=== PATIENT | male | born 1965 | race Caucasian/White ===

== ENCOUNTER 2016-06-09 10:58 | Emergency (ER) | payer OTHER ==
--- NOTE | 2016-06-09 13:39 | ED ORDER SUMMARY ---
..... Patient: ALEJANDRINA DANIELS OrderSheet [facility] VisitID: [id number] [place] [address] 51y, M Registration Date/Time: 06/09/2016 ORDER SHEET Weight: 113.3 kg (stated) Allergies: No Known Drug Allergy GENERAL ORDERS: CBC w Diff Urgent (11:42 06/09/2016 Louisa Holliday) (Ack 11:50 NHouse ER Tech1) (12:19 Gary R.N.) CMP Urgent (11:42 06/09/2016 Louisa Holliday) (Ack 11:50 NHouse ER Tech1) (12:19 Gary R.N.) UA-Culture if indicated Urgent (:42 06/09/2016 Louisa Holliday) (Ack 11:50 NHouse ER Tech1) (13:15 NHouse ER Tech1) PT with INR Urgent (11:42 06/09/2016 Louisa Holliday) (Ack 11:50 NHouse ER Tech1) (12:19 Gary R.N.) PTT Urgent (11:42 06/09/2016 Louisa Holliday) (Ack 11:50 NHouse ER Tech1) (12:19 Gary R.N.) Type & Rh Urgent (11:42 06/09/2016 Louisa Holliday) (Ack 11:50 NHouse ER Tech1) (12:19 Gary R.N.) MEDICATION ORDERS: IV FLUIDS: ORDER SHEET NOTES: [Electronically signed by Tamela Schafer R.N. (13:58 06/09/2016)] [Electronically signed by Aditya Welilngton Dr. (13:26 06/15/2016)] [Electronically locked/signed by Tamela Schafer R.N. (13:58 06/09/2016)]
--- NOTE | 2016-06-09 13:39 | ED CLINICAL REPORT ---
Clinical Report - Physicians/Mid Levels [facility] [address] [place] [address] 06/09/2016 10:59 Patient: ALEJANDRINA DANIELS Arrived- By private vehicle. Historian- patient. HISTORY OF PRESENT ILLNESS Chief Complaint: Rectal bleeding. This started today and is still present (staying the same). It was abrupt in onset and has been intermittent but is not gone now. The illness is described as moderate. No chest discomfort or pain or fever. (reports only having bleeding after having a bowel movement. Reports no history of hemorrhoids. States that he has a normal colonoscopy less than 5 years ago. Reports the colonoscopy did not show any acute abnormalities. Reports no history of constipation. States that he is having left upper quadrant abdominal pain that has been intermittent and mild. Reports he does not know what makes it better or worse. Reports not wanting any pain medication at this time. Reports the hematuria, diarrhea, nausea, vomiting, new or unusual foods, sick contact exposure,recent travel, recent antibiotics.). Additional history - No known contact with a sick individual. Similar symptoms previously: None. Recent medical care: Not recently seen/assessed. REVIEW OF SYSTEMS All systems otherwise negative, except as recorded above. PAST HISTORY Medications: AmLODIPine Besylate Oral. Lisinopril Oral. Allergies: No Known Drug Allergy. SOCIAL HISTORY Never smoker. Occasional alcohol use. No drug use. Is a local resident. FAMILY HISTORY (No family history of bleeding problems). ADDITIONAL NOTES The nursing notes have been reviewed. PHYSICAL EXAM Vital Signs: 06/09/2016 11:11 BP: 161/90. HR: 118. RR: 17. O2 saturation: 96%. Temp: 98.1 F. Blood pressure normal. Oxygen saturation normal. Appearance: Alert. No acute distress. Eyes: Pupils equal, round and reactive to light. Eyes normal inspection. ENT: Ears normal. Nose normal. Pharynx normal. Uvula midline. Neck: Normal inspection. Neck supple. CVS: Normal heart rate and rhythm. Heart sounds normal. Pulses normal. Respiratory: No respiratory distress. Breath sounds normal. Abdomen: Soft and nontender. No organomegaly. Back: Normal inspection. Rectal: Weakly heme-positive stool; hemoccult quality control technician check passed. brown colored stool (POC test reference range: negative). No blood streaks, gross blood, dark stools, servando melena or maroon colored stools. Rectal exam normal. Skin: Skin warm and dry. Normal skin color. No rash. Normal skin turgor. Extremities: Extremities exhibit normal ROM. No lower extremity edema. LABS, X-RAYS, AND EKG Laboratory Tests: UA-Culture if indicated: (LYNETTE: 06/09/2016 12:26) ( [facility] [place] 06/09[facility] 12:46) Final results Test Result Flag Units (Reference) URINE COLOR YELLOW URINE APPEARANCE CLEAR URINE GLUCOSE NEGATIVE (NEGATIVE) URINE BILIRUBIN NEGATIVE (NEGATIVE) URINE KETONE NEGATIVE (NEGATIVE) URINE SPECIFIC GRAVITY 1.025 (1.010-1.030) URINE PH 5.5 (5.0-8.0) URINE PROTEIN NEGATIVE (NEGATIVE) URINE UROBILINOGEN 0.2 EU/dL (0.2-1.0) URINE NITRITE NEGATIVE (NEGATIVE) URINE BLOOD NEGATIVE (NEGATIVE) URINE LEUK ESTERASE NEGATIVE (NEGATIVE) URINE RBC NONE SEEN rbc/hpf (0-1) URINE WBC NONE SEEN wbc/hpf (0-1) URINE EPITHELIAL CELLS NONE SEEN EPI/hpf (0-5) URINE BACTERIA NONE SEEN (NONE SEEN) URINE COMMENT CULT NOT INDICATED URINE CULTURES ARE SET-UP BASED ON THE FOLLOWING CRITERIA:POSITIVE NITRITEPOSITIVE LEUKOCYTE ESTERASEGREATER THAN 10 WHITE BLOOD CELLSMODERATE (2+) OR GREATER BACTERIA CBC w Diff: (LYNETTE: 06/09/2016 12:10) ( [facility] 06/09/2016 12:22) Final results Test Result Flag Units (Reference) WHITE BLOOD COUNT 9.0 K/uL (4.5-11.5) RED BLOOD COUNT 5.28 M/uL (4.50-5.90) HEMOGLOBIN 16.1 gm/dL (13.5-17.5) HEMATOCRIT 48.3 % (41.0-53.0) MEAN CELL VOLUME 91 fL (80-100) MEAN CORPUSCULAR HGB 31 pg (26-34) MEAN CORPUSCULAR HGB CONC 33 g/dL (31-37) RED CELL DISTRIBUTION WIDTH 12.3 % (11.6-14.8) PLATELET COUNT 242 K/uL (150-400) NEUTROPHIL % 72.7 % (50-75) LYMPH % 18.0 L % (25-40) MONO % 5.9 % (3-14) EOSINOPHIL % 3.1 % (0-4) BASOPHIL % 0.3 % (0-2) PT with INR: (LYNETTE: 06/09/2016 11:42) ( MsgRcvd 06/09/2016 12:48) Final results Test Result Flag Units (Reference) INR 0.9 (0.8-1.2) Low Intensity Therapy: INR 1.5-2.0 PT range 18.5-23.1Mod.Intensity Therapy: INR 2.0-3.0 PT range 23.1-31.5High Intensity Therapy: INR 2.5-3.5 PT range 27.4-35.5High Intensity Therapy 2: INR 3.0-4.0 PT range 31.5-39.3 APTT 25 SECONDS (24-34) CMP: (LYNETTE: 06/09/2016 12:10) ( [facility]ag[facility] 06/09/2016 12:37) Final results Test Result Flag Units (Reference) GLUCOSE 121 H mg/dL (70-110) BUN 17 mg/dL (7-18) CREATININE 1.3 mg/dL (0.6-1.3) Estimated GFR >60 mL/min Estimated GFR- >60 mL/min Note: Persistent reduction over 3 months in eGFR<60 mL/min/1.73 m2 defines CKD. Patients with eGFR values>=60 mL/min/1.73 m2 may also have CKD if evidence ofpersistent proteinuria. Additional information may be foundat www.kidney.org. SODIUM 140 mmol/L (136-145) POTASSIUM 4.1 mmol/L (3.5-5.1) CHLORIDE 105 mmol/L (98-107) CARBON DIOXIDE 23 mmol/L (21-32) CALCIUM 9.0 mg/dL (8.5-10.1) TOTAL PROTEIN 7.8 g/dL (6.4-8.2) ALBUMIN 3.8 g/dL (3.3-5.0) BILIRUBIN, TOTAL 0.3 mg/dL (0.0-1.0) ALKALINE PHOSPHATASE 79 U/L (46-116) AST (SGOT) 20 U/L (15-37) ALT (SGPT) 49 U/L (12-78) Type & Rh: (LYNETTE: 06/09/2016 12:10) ( MsgRcvd 06/09/2016 13:03) Final results Test Result Flag Units (Reference) PATIENT BLOOD TYPE B Positive . PROGRESS AND PROCEDURES Course of Care: the patient is a pleasant 51-year-old male presenting for evaluation of bright red blood per rectum. On examination, patient has heme positive stool. Patient to be evaluated with laboratory studies as well as quite duration factors. I discussed with patient in regards to abdominal pain. Patient has no other symptoms of abdominal pain. Patient has a nontender abdomen. Patient declines imaging or pain medication at this time. Workup does not show any acute antibodies. No urinary tract infection, hemoglobin and hematocrit are within normal limits, coagulation studies are also normal. Patient is resting in bed in no acute distress and does not have any signs of anemia. Patient is not symptomatically. Discussed the patient workup, diagnosis, home care, follow-up, and return precautions. All questions answered. The patient expressed understanding of these instructions and was agreeable to them. The patient states she will be able to follow up with the doctor that provided his most recent colonoscopy. Discharge instructions in regards to bleeding was provided. Because the patient is a stable GI bleed, patient is a good outpatient candidate. Do not feel the patient needs to be admitted to the hospital or require further emergency department evaluation. Discussed with patient workup, diagnosis, home care, follow up, and return precautions. All questions answered. Mother expressed understanding of these instructions and was agreeable to them. Disposition: Discharged. Condition: good. CLINICAL IMPRESSION 06/09/2016 11:11 BP: 161/90. HR: 118. RR: 17. O2 saturation: 96%. Temp: 98.1 F. Acute left upper quadrant abdominal pain. Blood pressure normal. Oxygen saturation normal. Rectal bleed consisting of bright red blood (acute). INSTRUCTIONS Warnings: GENERAL WARNINGS: Return or contact your physician immediately if your condition worsens or changes unexpectedly, if not improving as expected, or if other problems arise. Specifically return if pain, vomiting, bleeding, breathing difficulty or fever. Your Current Medications: CONTINUE TAKING THE FOLLOWING MEDICATIONS: AmLODIPine Besylate Oral. Lisinopril Oral. Prescription Medications: Pepcid 20 mg: take 1 orally every 12 hours for 10 days as needed for indigestion or upset stomach. Dispense twenty (20). No refills. Substitution is permissible. Follow-up: Return to the emergency department as needed. Follow up with your doctor in three days. Reason for referral: recheck today's concerns. Summary of care provided to patient via paper. Screening today revealed the patient's blood pressure to be in the normal range. The patient should follow up with a primary care provider for blood pressure management. Understanding of the discharge instructions verbalized by patient. (Electronically signed by Aditya Wellington Dr. 06/15/2016 13:26)
--- NOTE | 2016-06-09 13:39 | ED CLINICAL REPORT ---
Clinical Report - Physicians/Mid Levels [facility] [address] [place] [address] 06/09/2016 10:59 Patient: ALEJANDRINA DANIELS Arrived- By private vehicle. Historian- patient. HISTORY OF PRESENT ILLNESS Chief Complaint: Rectal bleeding. This started today and is still present (staying the same). It was abrupt in onset and has been intermittent but is not gone now. The illness is described as moderate. No chest discomfort or pain or fever. (reports only having bleeding after having a bowel movement. Reports no history of hemorrhoids. States that he has a normal colonoscopy less than 5 years ago. Reports the colonoscopy did not show any acute abnormalities. Reports no history of constipation. States that he is having left upper quadrant abdominal pain that has been intermittent and mild. Reports he does not know what makes it better or worse. Reports not wanting any pain medication at this time. Reports the hematuria, diarrhea, nausea, vomiting, new or unusual foods, sick contact exposure,recent travel, recent antibiotics.). Additional history - No known contact with a sick individual. Similar symptoms previously: None. Recent medical care: Not recently seen/assessed. REVIEW OF SYSTEMS All systems otherwise negative, except as recorded above. PAST HISTORY Medications: AmLODIPine Besylate Oral. Lisinopril Oral. Allergies: No Known Drug Allergy. SOCIAL HISTORY Never smoker. Occasional alcohol use. No drug use. Is a local resident. FAMILY HISTORY (No family history of bleeding problems). ADDITIONAL NOTES The nursing notes have been reviewed. PHYSICAL EXAM Vital Signs: 06/09/2016 11:11 BP: 161/90. HR: 118. RR: 17. O2 saturation: 96%. Temp: 98.1 F. Blood pressure normal. Oxygen saturation normal. Appearance: Alert. No acute distress. Eyes: Pupils equal, round and reactive to light. Eyes normal inspection. ENT: Ears normal. Nose normal. Pharynx normal. Uvula midline. Neck: Normal inspection. Neck supple. CVS: Normal heart rate and rhythm. Heart sounds normal. Pulses normal. Respiratory: No respiratory distress. Breath sounds normal. Abdomen: Soft and nontender. No organomegaly. Back: Normal inspection. Rectal: Weakly heme-positive stool; hemoccult quality control chemist check passed. brown colored stool (POC test reference range: negative). No blood streaks, gross blood, dark stools, servanod melena or maroon colored stools. Rectal exam normal. Skin: Skin warm and dry. Normal skin color. No rash. Normal skin turgor. Extremities: Extremities exhibit normal ROM. No lower extremity edema. LABS, X-RAYS, AND EKG Laboratory Tests: UA-Culture if indicated: (LYNETTE: 06/09/2016 12:26) ( [facility] [place] [facility] 12[facility] Final results Test Result Flag Units (Reference) URINE COLOR YELLOW URINE APPEARANCE CLEAR URINE GLUCOSE NEGATIVE (NEGATIVE) URINE BILIRUBIN NEGATIVE (NEGATIVE) URINE KETONE NEGATIVE (NEGATIVE) URINE SPECIFIC GRAVITY 1.025 (1.010-1.030) URINE PH 5.5 (5.0-8.0) URINE PROTEIN NEGATIVE (NEGATIVE) URINE UROBILINOGEN 0.2 EU/dL (0.2-1.0) URINE NITRITE NEGATIVE (NEGATIVE) URINE BLOOD NEGATIVE (NEGATIVE) URINE LEUK ESTERASE NEGATIVE (NEGATIVE) URINE RBC NONE SEEN rbc/hpf (0-1) URINE WBC NONE SEEN wbc/hpf (0-1) URINE EPITHELIAL CELLS NONE SEEN EPI/hpf (0-5) URINE BACTERIA NONE SEEN (NONE SEEN) URINE COMMENT CULT NOT INDICATED URINE CULTURES ARE SET-UP BASED ON THE FOLLOWING CRITERIA:POSITIVE NITRITEPOSITIVE LEUKOCYTE ESTERASEGREATER THAN 10 WHITE BLOOD CELLSMODERATE (2+) OR GREATER BACTERIA CBC w Diff: (LYNETTE: 06/09/2016 12:10) ( [facility] 12:[facility]) Final results Test Result Flag Units (Reference) WHITE BLOOD COUNT 9.0 K/uL (4.5-11.5) RED BLOOD COUNT 5.28 M/uL (4.50-5.90) HEMOGLOBIN 16.1 gm/dL (13.5-17.5) HEMATOCRIT 48.3 % (41.0-53.0) MEAN CELL VOLUME 91 fL (80-100) MEAN CORPUSCULAR HGB 31 pg (26-34) MEAN CORPUSCULAR HGB CONC 33 g/dL (31-37) RED CELL DISTRIBUTION WIDTH 12.3 % (11.6-14.8) PLATELET COUNT 242 K/uL (150-400) NEUTROPHIL % 72.7 % (50-75) LYMPH % 18.0 L % (25-40) MONO % 5.9 % (3-14) EOSINOPHIL % 3.1 % (0-4) BASOPHIL % 0.3 % (0-2) PT with INR: (LYNETTE: 06/09/2016 11:42) ( MsgRcvd 06/09/2016 12:48) Final results Test Result Flag Units (Reference) INR 0.9 (0.8-1.2) Low Intensity Therapy: INR 1.5-2.0 PT range 18.5-23.1Mod.Intensity Therapy: INR 2.0-3.0 PT range 23.1-31.5High Intensity Therapy: INR 2.5-3.5 PT range 27.4-35.5High Intensity Therapy 2: INR 3.0-4.0 PT range 31.5-39.3 APTT 25 SECONDS (24-34) CMP: (LYNETTE: 06/09/2016 12:10) ( HigRcvd 06/09/2016 12:37) Final results Test Result Flag Units (Reference) GLUCOSE 121 H mg/dL (70-110) BUN 17 mg/dL (7-18) CREATININE 1.3 mg/dL (0.6-1.3) Estimated GFR >60 mL/min Estimated GFR- >60 mL/min Note: Persistent reduction over 3 months in eGFR<60 mL/min/1.73 m2 defines CKD. Patients with eGFR values>=60 mL/min/1.73 m2 may also have CKD if evidence ofpersistent proteinuria. Additional information may be foundat www.kidney.org. SODIUM 140 mmol/L (136-145) POTASSIUM 4.1 mmol/L (3.5-5.1) CHLORIDE 105 mmol/L (98-107) CARBON DIOXIDE 23 mmol/L (21-32) CALCIUM 9.0 mg/dL (8.5-10.1) TOTAL PROTEIN 7.8 g/dL (6.4-8.2) ALBUMIN 3.8 g/dL (3.3-5.0) BILIRUBIN, TOTAL 0.3 mg/dL (0.0-1.0) ALKALINE PHOSPHATASE 79 U/L (46-116) AST (SGOT) 20 U/L (15-37) ALT (SGPT) 49 U/L (12-78) Type & Rh: (LYNETTE: 06/09/2016 12:10) ( MsgRcvd 06/09/2016 13:03) Final results Test Result Flag Units (Reference) PATIENT BLOOD TYPE B Positive . PROGRESS AND PROCEDURES Course of Care: the patient is a pleasant 51-year-old male presenting for evaluation of bright red blood per rectum. On examination, patient has heme positive stool. Patient to be evaluated with laboratory studies as well as quite duration factors. I discussed with patient in regards to abdominal pain. Patient has no other symptoms of abdominal pain. Patient has a nontender abdomen. Patient declines imaging or pain medication at this time. Workup does not show any acute antibodies. No urinary tract infection, hemoglobin and hematocrit are within normal limits, coagulation studies are also normal. Patient is resting in bed in no acute distress and does not have any signs of anemia. Patient is not symptomatically. Discussed the patient workup, diagnosis, home care, follow-up, and return precautions. All questions answered. The patient expressed understanding of these instructions and was agreeable to them. The patient states she will be able to follow up with the doctor that provided his most recent colonoscopy. Discharge instructions in regards to bleeding was provided. Because the patient is a stable GI bleed, patient is a good outpatient candidate. Do not feel the patient needs to be admitted to the hospital or require further emergency department evaluation. Discussed with patient workup, diagnosis, home care, follow up, and return precautions. All questions answered. Mother expressed understanding of these instructions and was agreeable to them. Disposition: Discharged. Condition: good. CLINICAL IMPRESSION 06/09/2016 11:11 BP: 161/90. HR: 118. RR: 17. O2 saturation: 96%. Temp: 98.1 F. Acute left upper quadrant abdominal pain. Blood pressure normal. Oxygen saturation normal. Rectal bleed consisting of bright red blood (acute). INSTRUCTIONS Warnings: GENERAL WARNINGS: Return or contact your physician immediately if your condition worsens or changes unexpectedly, if not improving as expected, or if other problems arise. Specifically return if pain, vomiting, bleeding, breathing difficulty or fever. Your Current Medications: CONTINUE TAKING THE FOLLOWING MEDICATIONS: AmLODIPine Besylate Oral. Lisinopril Oral. Prescription Medications: Pepcid 20 mg: take 1 orally every 12 hours for 10 days as needed for indigestion or upset stomach. Dispense twenty (20). No refills. Substitution is permissible. Follow-up: Return to the emergency department as needed. Follow up with your doctor in three days. Reason for referral: recheck today's concerns. Summary of care provided to patient via paper. Screening today revealed the patient's blood pressure to be in the normal range. The patient should follow up with a primary care provider for blood pressure management. Understanding of the discharge instructions verbalized by patient. (Electronically signed by Aditya Wellington Dr. 06/15/2016 13:26)
--- NOTE | 2016-06-09 13:39 | ED ORDER SUMMARY ---
..... Patient: ALEJANDRINA DANIELS OrderSheet [facility] VisitID: [id number] [place] [address] 51y, M Registration Date/Time: 06/09/2016 ORDER SHEET Weight: 113.3 kg (stated) Allergies: No Known Drug Allergy GENERAL ORDERS: CBC w Diff Urgent (11:42 06/09/2016 Louisa Holliday) (Ack 11:50 NHouse ER Tech1) (12:19 Gary R.N.) CMP Urgent (11:42 06/09/2016 Louisa Holliday) (Ack 11:50 NHouse ER Tech1) (12:19 Gary R.N.) UA-Culture if indicated Urgent (:42 06/09/2016 Louisa Holilday) (Ack 11:50 NHouse ER Tech1) (13:15 NHouse ER Tech1) PT with INR Urgent (11:42 06/09/2016 Louisa Holliday) (Ack 11:50 NHouse ER Tech1) (12:19 Gary R.N.) PTT Urgent (11:42 06/09/2016 Louisa Holliday) (Ack 11:50 NHouse ER Tech1) (12:19 Gary R.N.) Type & Rh Urgent (11:42 06/09/2016 Louisa Holliday) (Ack 11:50 NHouse ER Tech1) (12:19 Gary R.N.) MEDICATION ORDERS: IV FLUIDS: ORDER SHEET NOTES: [Electronically signed by Tamela Schafer R.N. (13:58 06/09/2016)] [Electronically signed by Aditya Wellington Dr. (13:26 06/15/2016)] [Electronically locked/signed by Tamela Schafer R.N. (13:58 06/09/2016)]
--- NOTE | 2016-06-09 13:39 | ED NURSING NOTES ---
Clinical Report - Nurses [facility] [address] [place] [address] 06/09/2016 10:59 Patient: ALEJANDRINA DANIELS TRIAGE Triage time 11:09. Acuity: LEVEL 3. Chief Complaint: (left flank pain; rectal bleeding). 11:14 06/09/16. --11:14 Shun Rodriguez R.N. 11:11 06/09/16. BP: 161/90. HR: 118. RR: 17. O2 saturation: 96% on room air. Temp: 98.1 F (oral). Pain level now 08/16. --11:14 Shun Rodriguez R.N. Weight: 113.3 kg stated. Height/Length: 68 inches Per Patient. BMI: 38. --11:10 Shnu Rodriguez R.N. Medications Lisinopril Oral. --11:13 Shun Rodriguez R.N. AmLODIPine Besylate Oral. --11:13 Shun Rodriguez R.N. Allergies No Known Drug Allergy. --11:13 Shun Rodriguez R.N. Medication/allergy information source: the patient. --11:14 Shun Rodriguez R.N. History Arrived by private vehicle, and accompanied by family. Primary physician (que). ( c/o left flank pain x2 days and bright red blood on toilet paper this morning. Pt denies any urinary symptoms.). This started today. Treatment INNOVATION MANAGER: None. SOCIAL HX: Former smoker, end date 2001. Alcohol use; consumes two beers a day. No drug use. FALL RISK ASSESSMENT: Fall risk assessment completed. No fall risk identified. NUTRITIONAL RISK ASSESSMENT: The nutritional risk assessment revealed no deficiencies. FUNCTIONAL ASSESSMENT: Functional assessment: no impairments noted. LEARNING NEEDS ASSESSMENT: The learning needs assessment revealed no barriers. SKIN INTEGRITY ASSESSMENT: Skin integrity risk assessment completed. No skin integrity risk identified. --11:14 Shun Rodriguez R.N. PROBLEMS: Gastroesophageal Reflux Disease. Hypertension. Abdominal Pain. --11:13 Shun Rodriguez R.N. Diverticulitis [RuleOut]. --11:13 Shun Rodriguez R.N. ADDITIONAL SURGERIES: Knee Surgery. Knee, right . --11:13 Shun Rodriguez R.N. Interventions ID band on patient. To treatment room. --11:14 Shun Rodriguez R.N. PHYSICAL ASSESSMENT 11:15 06/09/16. Ambulatory to room. GENERAL / NEURO / PSYCH: Alert. Oriented X 4. Appears in no acute distress. HEENT: Mucous membranes are pink. RESPIRATORY: Respirations not labored. CVS: Capillary refill less than 2 seconds. GI / : Abdomen soft and nontender. SKIN: Skin is warm and dry. --11:15 Shun Rodriguez R.N. NURSING PROGRESS NOTES 11:15 06/09/16. The plan of care for this patient has been created. Patient gowned. Head of bed elevated. Call light placed in reach. Bed placed in lowest position. Brakes of bed on. Patient ready for evaluation- chart flagged. --11:15 Shun Rodriguez R.N. Patient ID band checked for patient name and birthdate: patient confirmed. Instructions provided to collect clean catch urine and patient verbalized understanding. Clean catch urine collected with return of bean-colored clear urine; odor is normal; sample sent to lab for urinalysis and culture. Specimen labeled in the presence of the patient. --12:34 Shun Rodriguez R.N. 13:45. ( First contact with pt. Pt sitting fully dressed on chair in room #3, family at bedside. Pt in no distress, given dc instructions. ambulated out). --13:58 Tamela Schafer R.N. DISPOSITION / DISCHARGE 13:50. Condition at departure: stable. No learning barriers present. Discharge instructions provided and reviewed with the patient and spouse. Reviewed medication(s) (continue home zantac). Patient and spouse verbalized understanding. Written instructions provided in Moroccan. The patient was discharged home and accompanied by spouse. He left the Emergency Department ambulatory and via private vehicle. Patient driving. --13:57 Tamela Schafer R.N. 13:50 06/09/16. BP: 134/69. HR: 95. RR: 18. O2 saturation: 97% on room air. Temp: deferred. Pain level now: 08/16. --13:57 Tamela Schafer R.N. Locked/Released at 06/09/2016 13:58 by Tamela Schafer R.N.
--- NOTE | 2016-06-09 13:39 | ED NURSING NOTES ---
Clinical Report - Nurses [facility] [address] [place] [address] 06/09/2016 10:59 Patient: ALEJANDRINA DANIELS TRIAGE Triage time 11:09. Acuity: LEVEL 3. Chief Complaint: (left flank pain; rectal bleeding). 11:14 06/09/16. --11:14 Shun Rodriguez R.N. 11:11 06/09/16. BP: 161/90. HR: 118. RR: 17. O2 saturation: 96% on room air. Temp: 98.1 F (oral). Pain level now 08/16. --11:14 Shun Rodriguez R.N. Weight: 113.3 kg stated. Height/Length: 68 inches Per Patient. BMI: 38. --11:10 Shun Rodriguez R.N. Medications Lisinopril Oral. --11:13 Shun Rodriguez R.N. AmLODIPine Besylate Oral. --11:13 Shun Rodriguez R.N. Allergies No Known Drug Allergy. --11:13 Shun Rodriguez R.N. Medication/allergy information source: the patient. --11:14 Shun Rodriguez R.N. History Arrived by private vehicle, and accompanied by family. Primary physician (que). ( c/o left flank pain x2 days and bright red blood on toilet paper this morning. Pt denies any urinary symptoms.). This started today. Treatment [place]: None. SOCIAL HX: Former smoker, end date 2001. Alcohol use; consumes two beers a day. No drug use. FALL RISK ASSESSMENT: Fall risk assessment completed. No fall risk identified. NUTRITIONAL RISK ASSESSMENT: The nutritional risk assessment revealed no deficiencies. FUNCTIONAL ASSESSMENT: Functional assessment: no impairments noted. LEARNING NEEDS ASSESSMENT: The learning needs assessment revealed no barriers. SKIN INTEGRITY ASSESSMENT: Skin integrity risk assessment completed. No skin integrity risk identified. --11:14 Shun Rodriguez R.N. PROBLEMS: Gastroesophageal Reflux Disease. Hypertension. Abdominal Pain. --11:13 Shun Rodriguez R.N. Diverticulitis [RuleOut]. --11:13 Shun Rodriguez R.N. ADDITIONAL SURGERIES: Knee Surgery. Knee, right . --11:13 Shun Rodriguez R.N. Interventions ID band on patient. To treatment room. --11:14 Shun Rodriguez R.N. PHYSICAL ASSESSMENT 11:15 06/09/16. Ambulatory to room. GENERAL / NEURO / PSYCH: Alert. Oriented X 4. Appears in no acute distress. HEENT: Mucous membranes are pink. RESPIRATORY: Respirations not labored. CVS: Capillary refill less than 2 seconds. GI / : Abdomen soft and nontender. SKIN: Skin is warm and dry. --11:15 Shun Rodriguez R.N. NURSING PROGRESS NOTES 11:15 06/09/16. The plan of care for this patient has been created. Patient gowned. Head of bed elevated. Call light placed in reach. Bed placed in lowest position. Brakes of bed on. Patient ready for evaluation- chart flagged. --11:15 Shun Rodrgiuez R.N. Patient ID band checked for patient name and birthdate: patient confirmed. Instructions provided to collect clean catch urine and patient verbalized understanding. Clean catch urine collected with return of bean-colored clear urine; odor is normal; sample sent to lab for urinalysis and culture. Specimen labeled in the presence of the patient. --12:34 Shun Rodriguez R.N. 13:45. ( First contact with pt. Pt sitting fully dressed on chair in room #3, family at bedside. Pt in no distress, given dc instructions. ambulated out). --13:58 Tamela Schafer R.N. DISPOSITION / DISCHARGE 13:50. Condition at departure: stable. No learning barriers present. Discharge instructions provided and reviewed with the patient and spouse. Reviewed medication(s) (continue home zantac). Patient and spouse verbalized understanding. Written instructions provided in [place]. The patient was discharged home and accompanied by spouse. He left the Emergency Department ambulatory and via private vehicle. Patient driving. --13:57 Tamela Schafer R.N. 13:50 06/09/16. BP: 134/69. HR: 95. RR: 18. O2 saturation: 97% on room air. Temp: deferred. Pain level now: 08/16. --13:57 Tamela Schafer R.N. Locked/Released at 06/09/2016 13:58 by Tamela Schafer R.N.
--- NOTE | 2016-06-15 13:26 | ED MED RECONCILIATION SUMMARY ---
Patient: ALEJANDRINA DANIELS Medication Reconciliation Report [facility] VisitID: [id number] [address] [place] [address] 51y, M Registration Date/Time: 06/09/2016 Weight: 113.3 kg Height/Length: 68 in. BMI: 38.0 ALLERGIES: No Known Drug Allergy The patient's Home Medications are listed below: CONTINUE TAKING THE FOLLOWING MEDICATIONS: AmLODIPine Besylate Oral Lisinopril Oral The source(s) of the original Home Medication information: patient The following Medications were given to the patient in the Emergency Department: None. The following Medications were prescribed to the patient: Pepcid 20 mg: take 1 orally every 12 hours for 10 days as needed for indigestion or upset stomach. Dispense twenty (20). No refills. Substitution is permissible. -- Aditya Wellington Dr.
--- NOTE | 2016-06-15 13:26 | ED MED RECONCILIATION SUMMARY ---
Patient: ALEJANDRINA DANIELS Medication Reconciliation Report [facility] VisitID: [id number] [address] [place] [address] 51y, M Registration Date/Time: 06/09/2016 Weight: 113.3 kg Height/Length: 68 in. BMI: 38.0 ALLERGIES: No Known Drug Allergy The patient's Home Medications are listed below: CONTINUE TAKING THE FOLLOWING MEDICATIONS: AmLODIPine Besylate Oral Lisinopril Oral The source(s) of the original Home Medication information: patient The following Medications were given to the patient in the Emergency Department: None. The following Medications were prescribed to the patient: Pepcid 20 mg: take 1 orally every 12 hours for 10 days as needed for indigestion or upset stomach. Dispense twenty (20). No refills. Substitution is permissible. -- Aditya Wellington Dr.
--- NOTE | 2016-06-15 13:26 | ED DISCHARGE INSTRUCTIONS ---
Patient: ALEJANDRINA DANIELS General Instructions [facility] VisitID: [id number] [place] [address] 51y, M Registration Date/Time: 06/09/2016 06/09/2016 11:11 BP: 161/90. HR: 118. RR: 17. O2 saturation: 96%. Temp: 98.1 F. Acute left upper quadrant abdominal pain. Blood pressure normal. Oxygen saturation normal. Rectal bleed consisting of bright red blood (acute). INSTRUCTIONS Warnings: GENERAL WARNINGS: Return or contact your physician immediately if your condition worsens or changes unexpectedly, if not improving as expected, or if other problems arise. Specifically return if pain, vomiting, bleeding, breathing difficulty or fever. Your Current Medications: CONTINUE TAKING THE FOLLOWING MEDICATIONS: AmLODIPine Besylate Oral. Lisinopril Oral. Prescription Medications: Pepcid 20 mg: take 1 orally every 12 hours for 10 days as needed for indigestion or upset stomach. Dispense twenty (20). No refills. Substitution is permissible. Follow-up: Return to the emergency department as needed. Follow up with your doctor in three days. Reason for referral: recheck today's concerns. Summary of care provided to patient via paper. Screening today revealed the patient's blood pressure to be in the normal range. The patient should follow up with a primary care provider for blood pressure management. Understanding of the discharge instructions verbalized by patient. ADDITIONAL INFORMATION Abdominal Pain,Uncertain Cause [Male] Based on your visit today, the exact cause of your abdominalpain is not clear. Your exam and tests do not indicate a dangerous cause at this time. However, the signs of a serious problem may take more time to appear. Although your evaluation was reassuring today, sometimes early in the course of many conditions, exam and lab tests can appear normal. Therefore, it is important for you to watch for any new symptoms or worsening of your condition. Causes It may not be obvious what caused your symptoms. Pay attention to things that do seem to make your symptoms worse or better and discuss this with your doctor when you follow up. Diagnosis The evaluation of abdominal pain in the emergency department may onlyrequire an exam by the doctor or it may include blood, urine or imaging studies, depending on many factors. Sometimes exams and tests can identify a cause but in many cases, a clear cause is not found. Further testing at follow up visits may help to suggest a clear diagnosis. Home Care Rest as much as possible until your next exam. Try to avoid any medications (unless otherwise directed by your doctor), foods, activities, or other factors that you may have contributed to your symptoms. Try to eat foods that you know that you have tolerated well in the past. Certain diets may be recommended for some conditions that cause abdominal pain. However, since the cause of your symptoms may not be clear, discuss your diet more with your primary care provider or specialist for further recommendations. Eating several small meals per day as opposed to 2 or 3 larger meals may help. Monitor closely for anything that may make your symptoms worse or better. Pay close attention to symptoms below that may indicate worsening of your condition. Follow Up and Precautions See your doctoras instructed or sooneror if your symptoms are not improving.In some cases, you may need more testing. When to Seek Medical Attention Contact your doctor or see medical attention ifany of the following occur: Pain is becoming worse You are unable to take your medications due to excessive vomiting Swelling of the abdomen Fever of 100.4F (38C) or higher, or as directed by your health care provider Blood in vomit or bowel movements (dark red or black color) Jaundice (yellow color of eyes and skin) New onset of weakness, dizziness or fainting New onset of chest, arm, back, neck or jaw pain Rectal Bleeding (Stable) Your exam today shows signs of blood in the stool. This is called rectal bleeding, because the blood passes through the rectum. However, the blood may not be coming from the rectum. Blood in the stool may be red or black in color. Red blood in the stool usually comes from the lower gastro-intestinal (GI) tract. This may be due to diverticulosis, polyps, colon inflammation or infection, anal fissure or hemorrhoids. In persons over 50 tumors and cancer of the intestinal tract may first show up as red blood in the stool. Upper GI bleeding causes the stool to turn black. This may occur with bleeding from the esophagus, stomach, duodenum or small intestine. Very small amounts of GI bleeding may not be visible and can only be discovered on a chemical test of the stool. You have not lost a large amount of blood and your condition appears stable at this time. It is very important to have a follow-up exam to determine the exact cause of your bleeding. Home Care: 1) You may resume normal activity as long as you feel well. 2) Avoid aspirin and anti-inflammatory drugs such as ibuprofen (Advil, Motrin) and naproxen (Aleve and Naprosyn). You may use acetaminophen (Tylenol) for pain. [ NOTE : If you have chronic liver disease, talk with your doctor before using acetaminophen.] 3) Avoid alcohol. Follow Up with your doctor or as advised by our medical staff. It is very important that you have further tests done to find the cause of your bleeding. Get Prompt Medical Attention if any of the following occur: -- Large amount of rectal bleeding (more than 1 cup of blood in 24 hours) -- Increasing abdominal pain -- Weakness, dizziness or fainting -- Vomiting blood (red or black color) Famotidine Oral tablet What is this medicine? FAMOTIDINE (fa SAULO ti kathrine) is a type of antihistamine that blocks the release of stomach acid. It is used to treat stomach or intestinal ulcers. It can also relieve heartburn from acid reflux. How should I use this medicine? Take this medicine by mouth with a glass of water. Follow the directions on the prescription label. If you only take this medicine once a day, take it at bedtime. Take your doses at regular intervals. Do not take your medicine more often than directed. Talk to your application performance engineer regarding the use of this medicine in children. Special care may be needed. What side effects may I notice from receiving this medicine? Side effects that you should report to your doctor or health critical care paramedic as soon as possible: agitation, nervousness confusion hallucinations skin rash, itching Side effects that usually do not require medical attention (report to your doctor or health critical care paramedic if they continue or are bothersome): constipation diarrhea dizziness headache What may interact with this medicine? delavirdine itraconazole ketoconazole What if I miss a dose? If you miss a dose, take it as soon as you can. If it is almost time for your next dose, take only that dose. Do not take double or extra doses. Where should I keep my medicine? Keep out of the reach of children. Store at room temperature between 15 and 30 degrees C (59 and 86 degrees F). Do not freeze. Throw away any unused medicine after the expiration date. What should I tell my health care provider before I take this medicine? They need to know if you have any of these conditions: kidney or liver disease trouble swallowing an unusual or allergic reaction to famotidine, other medicines, foods, dyes, or preservatives or trying to get breast-feeding What should I watch for while using this medicine? Tell your doctor or health critical care paramedic if your condition does not start to get better or if it gets worse. Finish the full course of tablets prescribed, even if you feel better. Do not take with aspirin, ibuprofen or other antiinflammatory medicines. These can make your condition worse. Do not smoke cigarettes or drink alcohol. These cause irritation in your stomach and can increase the time it will take for ulcers to heal. If you get black, tarry stools or vomit up what looks like coffee grounds, call your doctor or health critical care paramedic at once. You may have a bleeding ulcer. You have been given the following additional information: Abdominal Pain, Unknown Cause, (Male) Rectal Bleed, Stable Famotidine Oral tablet (Electronically signed by Aditya Wellington Dr. 06/15/2016 13:26)
--- NOTE | 2016-06-15 13:26 | ED MAR SUMMARY ---
..... Medication Administration Record [facility] [address], [place] [id number] Patient: ALEJANDRINA DANIELS Visit ID: [id number] 51y, M Weight: 113.3 kg Height/Length: 68 in BMI: 38 ALLERGIES: No Known Drug Allergy
--- NOTE | 2016-06-15 13:26 | ED MAR SUMMARY ---
..... Medication Administration Record [facility] [address] [place], [place] [id number] Patient: ALEJANDRINA DANIELS Visit ID: [id number] 51y, M Weight: 113.3 kg Height/Length: 68 in BMI: 38 ALLERGIES: No Known Drug Allergy
== END 2016-06-09 13:50 | disposition home or self-care (01) ==
LOC: ED SRH 10:58
DX: K62.5 Hemorrhage of anus and rectum (principal); R10.12 Left upper quadrant pain; K21.9 Gastro-esophageal reflux disease without esophagitis; I10 Essential (primary) hypertension
CPT/HCPCS: 90001; 90004; 90074; 90100; 90155; 94001; 94060; 95059